=== PATIENT | female | born 1945 | race Caucasian/White ===

== ENCOUNTER → 2016-08-03 | Outpatient (CLI) | payer OTHER, MEDICARE ==
--- NOTE | 2016-08-03 11:19 | DX ---
Right Foot, Three Views HISTORY: Pain at lateral side of right foot. Bony prominence about mid shaft fifth metatarsal. FINDINGS: There is mild hallux valgus and bunion deformity. Minimal early degenerative change is seen in the first metatarsophalangeal joint. Minimal bunionette deformity. No evidence for acute fracture or dislocation. No evidence for aggressive osseous lesion. Possible radiopaque foreign body versus a rtifact plantar aspect of the great toe, seen only on the lateral view making it more likely artifact . IMPRESSION: Mild hallux valgus and bunion deformity first metatarsophalangeal joint with minimal юлия y degenerative change. Minimal bunionette deformity.
== END ==
LOC: CIMAGING 09:29
PROVIDERS: ATTEND Family Medicine
DX: M20.11 Hallux valgus (acquired), right foot (principal); M21.611 Bunion of right foot; M21.621 Bunionette of right foot
CPT/HCPCS: 73620-PO

== ENCOUNTER → 2016-08-09 | Outpatient (CLI) | payer OTHER, MEDICARE ==
--- NOTE | 2016-08-09 16:52 | DX ---
DEXA Bone Mineral Densitometry Clinical Indications: Postmenopausal, post hysterectomy, family history of osteoporosis, diabetes, f ollow-up osteoporosis Comparison: February 07, 2012 Technique: Bone Mineral Densitometry (BMD) by Dual Energy X-Ray Absorptiometry (DEXA) was performed utilizing the [id number] scanner. The lumbar spine was evaluated in the AP projection. The bilat eral hips and forearm were evaluated in the AP projection. Vertebral fracture assessment was also pe rformed. AP Lumbar Spine: The L1 only vertebral body was evaluated. L2, L3 and L4 are excluded due to degener ative sclerosis. BMD: 1.052 gm/cm2 T-score: -0.7 SD Z-score: 0.9 SD Significantly increased L1, likely related to degenerative sclerosis. AP Left Hip: Neck BMD: 0.693 gm/cm2 T-score: -2.5 SD Z-score: -0.8 SD No significant change in total BMD AP Right Hip: Neck BMD: 0.669 gm/cm2 T-score: -2.7 SD Z-score: -1.0 SD No significant change in total BMD. AP Left Forearm, 07/17: BMD: 0.598 gm/cm2 T-score: -3.2 SD Z-score: -1.2 SD No significant change. Vertebral Fracture Assessment: No significant fracture deformity. Lumbar BMD is likely increase due to degenerative sclerosis and atherosclerotic calcification of the abdominal aorta. Conclusion: Considering the lowest measured site, the patient is osteoporotic and at increased risk for fracture. Since the forearm is the lowest measured site, it would be worthwhile to exclude hyperp arathyroidism. The ten year FRAX risk for any major osteoporotic fracture , which excludes the risk for a wrist frac ture, is 27% and for a hip fracture is 12.1%. Consider excluding secondary metabolic causes of bone loss (reported to be present in as many as 30% of patients with normal Z scores). Basic laboratory evaluation might include blood chemistries (calci um, phosphorus, alkaline phosphatase, liver function tests, creatinine, total protein), complete bloo d count, serum 25-OH- vitamin D3 level, 24-hour urine calcium, serum TSH and serum PTH. Targeted l aboratory testing based on individual patient circumstances might include serum electrophoresis (SPEP or UPEP), anti-tissue transglutaminase antibody levels (celiac disease) , serum bone specific alkal ine phosphatase, bone turnover markers (urine, serum) or fibroblast growth factor 23 (FGF 23)(evaluat e for unexplained osteomalacia). If secondary causes are excluded, then consider initiating treatment with a bisphosphonate (such as F osamax, Actonel or Boniva). If the patient is unable to use an oral bisphosphonate, another agent suc h as IV bisphosphonates (Boniva or Reclast), teriparatide (Forteo), a selective estrogen receptor mo dulator (Evista) or denosumab ( anti RANKL monoclonal antibody) might be considered. If antiresorptive therapy is initiated and if clinically indicated, consider obtaining a baseline and 3 month followup bone resorption marker (NTX, CTX, TRAP5b or Pyridinoline, deoxypyridinoline) to mon itor the therapeutic effect. Supplementing an insufficient diet to achieve total intakes of 1500 mg calcium and 800 International Units of vitamin D daily should be considered. Osteoporosis prevention and treatment begins by modify ing risk factors. The patient should be encouraged to participate in a regular exercise program that includes weightbearing and muscle strengthening regimens, as is clinically appropriate. Recommend follow-up DEXA in one year to assess the efficacy of pharmacologic intervention and/or otmasa ection of appropriate secondary cause.
== END ==
LOC: FIMAGING 14:09
PROVIDERS: ATTEND Internal Medicine Endocrinology, Diabetes & Metabolism
DX: Z13.820 Encounter for screening for osteoporosis (principal); M81.0 Age-related osteoporosis without current pathological fracture; E11.9 Type 2 diabetes mellitus without complications; Z78.0 Asymptomatic menopausal state; Z82.62 Family history of osteoporosis

== ENCOUNTER → 2017-03-28 | Outpatient (CLI) | payer OTHER, MEDICARE | LOC: CIMAGING 12:04 | PROVIDERS: ATTEND Family Medicine | DX: J42 Unspecified chronic bronchitis (principal) | CPT/HCPCS: 71020-PO ==

== ENCOUNTER → 2017-06-25 | Outpatient (CLI) | payer OTHER, MEDICARE | LOC: CIMAGING 14:28 | PROVIDERS: ATTEND Family Medicine | DX: Z12.31 Encounter for screening mammogram for malignant neoplasm of breast (principal) | CPT/HCPCS: G0202 ==

== ENCOUNTER → 2018-09-18 | Outpatient (CLI) | payer OTHER, MEDICARE | LOC: FIMAGING 10:55 | PROVIDERS: ATTEND Internal Medicine Endocrinology, Diabetes & Metabolism | DX: M81.0 Age-related osteoporosis without current pathological fracture (principal); Z78.0 Asymptomatic menopausal state ==